=== PATIENT | male | born 1980 | race Caucasian/White ===

== ENCOUNTER 2019-09-16 10:23 | Emergency (ER) | payer BC, SELFPAY ==
[2019-09-16 10:42] VITALS: BP 116/64; PULSE 56; RESP 16; TEMP 36.9; O2SAT 98
--- NOTE | 2019-09-16 11:25 | ED.URI ---
HPI - URI/Sore Throat General Chief Complaint: Upper Respiratory Infection Stated Complaint: Headache/Cold Sweats Time Seen by Provider: 09/16/19 11:15 Source: patient and RN notes reviewed Mode of arrival: ambulatory Limitations: no limitations History of Present Illness HPI Narrative: 39-year-old male presents with concern for general malaise, fatigue, chills, sweats, headache. Reports girlfriend tested positive for influenza A. MD elicited complaint: other (Body aches) Related Data Home Medications Medication Instructions Recorded Confirmed cetirizine [Zyrtec] mg 07/14/19 metoprolol tartrate 50 mg PO DAILY 07/14/19 07/14/19 ranitidine HCl 07/14/19 sertraline [Zoloft] 50 mg PO DAILY 07/14/19 07/14/19 Allergies Allergy/AdvReac Type Severity Reaction Status Date / Time No Known Allergies Allergy Verified 07/14/19 14:48 Review of Systems Review of Systems: Narrative: CONSTITUTIONAL: Reports malaise, chills, sweats, fatigue. Denies fever. EYES: Denies visual changes, redness, or discharge. ENT: Reports rhinorrhea. Denies congestion, sinus pain, otalgia and sore throat. CARDIOVASCULAR: Denies chest pain, palpitations, or edema. RESPIRATORY: Reports occasional cough. Denies dyspnea. GASTROINTESTINAL: Denies abdominal pain, nausea, vomiting, diarrhea SKIN: Denies rash or itching. MUSCULOSKELETAL: Reports myalgia. NEUROLOGIC: Reports headache. 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 There is no relevant family history pertinent to the presenting complaint Exam Narrative: Exam Narrative: GENERAL: Well-appearing, well-nourished, and in no acute distress. HEAD: Normocephalic, atraumatic. EYES: PERRLA, conjunctivae clear ENT: Nares clear, turbinates pink, no rhinorrhea or epistaxis. Mucous membranes moist. TM pearly suarez with sharp light reflex bilaterally; no tragal tenderness. Oropharynx without erythema or lesions. Tonsils not enlarged and without exudate. NECK: Supple. No lymphadenopathy. CHEST: No respiratory distress. Clear to auscultation. No bony deformities, no asymmetry. Speaks in full sentences. HEART: Regular rate and rhythm. No murmur heard. SKIN: Warm, dry, no rash. NEURO: Alert and oriented x3. PSYCH: Normal mood and affect Course Course Emergency Course: Patient is aware of diagnosis, understands and agrees to treatment plan. Anticipatory guidance given. Patient agrees to follow-up as directed and is aware of reasons to seek care at the emergency department. Portions of this record may have been created with voice recognition software Vital Signs Vital signs: Vital Signs Temperature 98.4 F 09/16/19 10:42 Pulse Rate 56 L 09/16/19 10:42 Respiratory Rate 16 09/16/19 10:42 Blood Pressure 116/64 09/16/19 10:42 Pulse Oximetry 98 09/16/19 10:42 Temperature 98.4 F 09/16/19 10:42 Pulse Rate 56 L 09/16/19 10:42 Respiratory Rate 16 09/16/19 10:42 Blood Pressure 116/64 09/16/19 10:42 Pulse Oximetry 98 09/16/19 10:42 Reviewed. MDM - URI/Sore Throat MDM Narrative Medical decision making narrative: Differential diagnosis considered: Strep pharyngitis, allergic rhinitis, upper respiratory tract infection, sinusitis, rhinosinusitis
== END 2019-09-16 11:31 | disposition home or self-care (01) ==
PROVIDERS: Emergency Provider Nurse Practitioner
DX: B34.9 Viral infection, unspecified (principal); K21.9 Gastro-esophageal reflux disease without esophagitis
CPT/HCPCS: 87804; 99212; G0463